=== PATIENT | male | born 1955 | race Caucasian/White ===

== ENCOUNTER → 2020-03-29 | Outpatient (CLI) | payer SELFPAY | LOC: M LABSMTC 10:10 | PROVIDERS: ATTEND Pediatrics | DX: Z20.828 Contact with and (suspected) exposure to other viral communicable diseases (principal) ==

== ENCOUNTER → 2020-06-26 | Outpatient (CLI) | payer OTHER | LOC: M LABSMTC 11:56 | PROVIDERS: ATTEND Ophthalmology | DX: Z11.59 Encounter for screening for other viral diseases (principal) ==

== ENCOUNTER → 2021-12-22 | Outpatient (CLI) | payer OTHER | LOC: M SOG 08:23 | PROVIDERS: ATTEND Physician Assistant | DX: M19.041 Primary osteoarthritis, right hand (principal) ==

== ENCOUNTER → 2021-12-28 | Outpatient (CLI) | payer OTHER | LOC: M PLAIMG 06:42 | PROVIDERS: ATTEND Orthopaedic Surgery Hand Surgery | DX: S66.911A Strain of unspecified muscle, fascia and tendon at wrist and hand level, right hand, initial encounter (principal); X58.XXXA Exposure to other specified factors, initial encounter; Y92.89 Other specified places as the place of occurrence of the external cause ==

== ENCOUNTER 2022-01-04 13:46 | Day surgery (SDC) | payer OTHER ==
[~2022-01-04] VITALS: Ht 172.7 cm; Wt 73.4 kg
[2022-01-04] MEDS ORDERED: OLME20TA2 PO (14:41)
[2022-01-04] MEDS ORDERED: XALA0.007 OU (14:41)
[2022-01-04] MEDS ORDERED: TIMO0.5S39 OU (14:41)
[2022-01-04] MEDS ORDERED: BACITRACIN OINTMENT 30GM TUBE As Ordered ONE (15:55)
[2022-01-04] MEDS ORDERED: LR 1,000 ML IV SCH ×2 (15:55→19:05)
[2022-01-04] MEDS ORDERED: BUPIVACAINE HCL 0.25% 30ML VIAL As Ordered ONE (15:56)
[2022-01-04] MEDS ORDERED: MIDAZOLAM INJ 2MG/2ML VIAL (J2250 PER 1MG) As Ordered ONE (16:04)
[2022-01-04] MEDS ORDERED: fentaNYL 250 MCG/5 ML INJECTION As Ordered ONE (16:04)
[2022-01-04] MEDS ORDERED: LIDOCAINE 2% 100MG/5ML SDV (FOR ANES.) As Ordered ONE (16:06)
[2022-01-04] MEDS ORDERED: propofoL 200 MG/20 ML VIAL As Ordered ONE (16:06)
[2022-01-04] MEDS ORDERED: ceFAZolin 2 GM/D5W 50 ML IV BAG (J0690 PER 500MG) As Ordered ONE (16:44)
[2022-01-04] MEDS ORDERED: dexameTHASONE 4 MG/ML 1ML VIAL (J1100 PER 1MG) As Ordered ONE (16:45)
[2022-01-04] MEDS ORDERED: ONDANSETRON 4MG 2ML VIAL As Ordered ONE (16:46)
[2022-01-04] MEDS ORDERED: ACETAMINOPHEN 1000MG 100ML IV BTL (OFIRMEV) (J0131 PER 10MG) As Ordered ONE (16:51)
[2022-01-04] MEDS ORDERED: GLYCOPYRROLATE INJ 0.2 MG/ML 2 ML VIAL As Ordered ONE (17:29)
[2022-01-04] MEDS ORDERED: KETOROLAC 60MG 2ML VIAL As Ordered ONE (18:11)
[2022-01-04] MEDS ORDERED: HYDROMORPHONE HCL 0.5 MG/ 0.5 ML SYRINGE (J1170 PER 1) IV PRN (19:05)
[2022-01-04] MEDS ORDERED: ONDANSETRON 4MG 2ML VIAL IV PRN (19:05)
[2022-01-04] MEDS ORDERED: oxyCODONE 5MG TAB PO PRN (19:05)
[2022-01-04] MEDS ORDERED: fentaNYL 100 MCG/2 ML INJECTION IV PRN (19:05)
[2022-01-04 19:56] VITALS: BP 118/59
== END 2022-01-04 20:07 | disposition home or self-care (01) ==
LOC: M SDC 13:46
PROVIDERS: ATTEND Orthopaedic Surgery Hand Surgery
DX: S66.116A Strain of flexor muscle, fascia and tendon of right little finger at wrist and hand level, initial encounter (principal); X58.XXXA Exposure to other specified factors, initial encounter; M65.841 Other synovitis and tenosynovitis, right hand; I10 Essential (primary) hypertension; H40.9 Unspecified glaucoma; Z96.652 Presence of left artificial knee joint
CPT/HCPCS: 25115; 26372; 87635; 88304; J0131; J0690; J1100; J1885; J2250; J2405; J3010